=== PATIENT | female | born 1975 | race Hispanic/Latino ===

== ENCOUNTER 2020-05-23 05:30 | Observation (INO) | payer OTHER ==
[2020-05-22 12:19] LABS: HEMATOCRIT 39.7 % (36-48); PLATELET COUNT (AUTO) 281 K/uL (130-400); RED BLOOD CELL COUNT(AUTO) 4.51 MIL/uL (4.00-5.50); RED CELL DISTRIBUTION WIDTH 12.8 % (11.0-15.5); WHITE BLOOD COUNT (AUTO) 8.6 K/uL (4.8-10.8)
[2020-05-22 12:34] LABS: BASOPHILS % (AUTO) 1.2 % (0.0-5.0); LYMPHOCYTES % (AUTO) 23.2 % (21.0-51.0); MONOCYTES % (AUTO) 5.4 % (3.0-13.0); NEUTROPHILS % (AUTO) 65.6 % (40.0-77.0)
[2020-05-22 14:30] VITALS: BP 143/68
[~2020-05-23] VITALS: Ht 170.2 cm; Wt 85.9 kg
[2020-05-23] VITALS (24 sets, daily range): BP systolic 100–153; BP diastolic 50–93
[~2020-05-23 05:30] MED LIST: CABE0.5T2 PO; FERS325 PO
[2020-05-23] MEDS ORDERED: CEFAZOLIN SODIUM 1 GM VIAL ONE (05:53)
[2020-05-23] MEDS ORDERED: LACTATED RINGERS 1000ML 1,000 ML IV ONE (05:53)
[2020-05-23] MEDS ORDERED: SUCCINYLCHOLINE CHLORIDE 20 MG/ML 10 ML VIAL ONE (06:29)
[2020-05-23] MEDS ORDERED: DEXAMETHASONE SOD PHOSPHATE 10MG/ML 1ML VIAL ONE (06:29)
[2020-05-23] MEDS ORDERED: LIDOCAINE PF 2% 5ML ABBOJECT ONE (06:29)
[2020-05-23] MEDS ORDERED: ONDANSETRON HCL 4 MG/2 ML VIAL ONE (06:29)
[2020-05-23] MEDS ORDERED: GLYCOPYRROLATE 1 MG/5 ML SYRINGE ONE (06:29)
[2020-05-23] MEDS ORDERED: MIDAZOLAM HCL 1 MG/ML 2ML VIAL ONE (06:30)
[2020-05-23] MEDS ORDERED: NEOSTIGMINE 5MG/5ML SYR IV ONE (06:30)
[2020-05-23] MEDS ORDERED: PROPOFOL 10 MG/ML 20ML VIAL IV ONE (06:30)
[2020-05-23] MEDS ORDERED: ROCURONIUM 10MG/1ML SYR 10 MG/ML ML ONE ×2 (06:30→07:43)
[2020-05-23] MEDS ORDERED: FENTANYL CITRATE PF 50 MCG/1 ML 2ML VIAL ONE (06:30)
[2020-05-23] MEDS ORDERED: KETAMINE HCL 100 MG/ML 5ML VIAL IJ ONE (06:35)
[2020-05-23] MEDS ORDERED: SODIUM CHLORIDE 0.9% 10 ML VIAL ONE (06:37)
[2020-05-23] MEDS ORDERED: CEFAZOLIN SODIUM 1 GM VIAL IVP ONE (08:00)
[2020-05-23] MEDS ORDERED: LACTATED RINGERS 1000ML 1,000 ML IV SCH (08:00)
[2020-05-23] MEDS ORDERED: IBUPROFEN 600 MG TABLET PO PRN (08:45)
[2020-05-23] MEDS ORDERED: ONDANSETRON HCL 4 MG/2 ML VIAL IVP PRN (08:45)
[2020-05-23] MEDS ORDERED: SIMETHICONE 80 MG TAB.CHEW PO PRN (08:45)
[2020-05-23] MEDS ORDERED: PROMETHAZINE HCL 25 MG/ML 1ML AMPULE IM PRN ×2 (08:45)
[2020-05-23] MEDS ORDERED: DOCUSATE SODIUM 100 MG CAP PO PRN (08:45)
[2020-05-23] MEDS ORDERED: BISACODYL 10 MG SUPP.RECT RC PRN (08:45)
[2020-05-23] MEDS ORDERED: ACETAMINOPHEN-CODEINE 300/30MG TAB PO PRN (08:45)
[2020-05-23] MEDS ORDERED: MEPERIDINE-PF 25 MG/ML SYG ONE (08:50)
[2020-05-23] MEDS: MEPERIDINE-PF 25 MG/ML SYG IM PRN ×2 (09:18→14:45)
[2020-05-23] MEDS: DEXTROSE 5 %-0.45 % NACL 1,000 ML IV PRN ×2 (09:54→17:46)
[2020-05-23] MEDS: LACTATED RINGERS 1000ML 1,000 ML IV SCH (20:45)
[2020-05-24] MEDS: LACTATED RINGERS 1000ML 1,000 ML IV SCH (00:25)
[2020-05-24] MEDS: MEPERIDINE-PF 25 MG/ML SYG IM PRN (01:39)
[2020-05-24] MEDS: DEXTROSE 5 %-0.45 % NACL 1,000 ML IV PRN (01:42)
[2020-05-24 03:48] VITALS: BP 129/62
[2020-05-24 05:42] LABS: HEMATOCRIT 37.2 % (36-48); MEAN CORPUSCULAR HEMOGLOBIN 28.7 pg (27.0-33.0); MEAN CORPUSCULAR HGB CONC 32.8 g/dL (32.0-36.0); MEAN CORPUSCULAR VOLUME 87.5 fL (79-99); RED BLOOD CELL COUNT(AUTO) 4.25 MIL/uL (4.00-5.50); WHITE BLOOD COUNT (AUTO) 14.4 K/uL (4.8-10.8)
[2020-05-24 07:20] VITALS: BP 130/73
[2020-05-24 07:27] VITALS: BP 104/65
[2020-05-24 11:21] VITALS: BP 125/74
== END 2020-05-24 13:10 | disposition home or self-care (01) ==
LOC: DAH 05:30 → DAHIP 05:31 → WSH 09:45
PROVIDERS: ADMIT Obstetrics & Gynecology; ATTEND Obstetrics & Gynecology
DX: N92.1 Excessive and frequent menstruation with irregular cycle (principal); Z20.822 Contact with and (suspected) exposure to COVID-19; K46.9 Unspecified abdominal hernia without obstruction or gangrene; N83.201 Unspecified ovarian cyst, right side; D25.9 Leiomyoma of uterus, unspecified; D64.9 Anemia, unspecified; F41.9 Anxiety disorder, unspecified; F32.9 Major depressive disorder, single episode, unspecified; Z79.899 Other long term (current) drug therapy
CPT/HCPCS: 36415 ×3; 58263; 85025; 85027; 86850; 86900; 86901; 96360; 96361 ×2; 96372 ×2; A4215; A4221; A4222; A4223; A4351; A4510; A4600; A4606; A4663; A4930; A6260; C9803 ×2; G0378 ×25; J0330; J0690; J1100; J2001; J2175 ×4; J2250; J2405; J2550 ×2; J2704; J2710; J3010; J3490 ×2; J7120 ×2; U0003 ×2